=== PATIENT | female | born 1955 | race Caucasian/White ===

== ENCOUNTER 2023-07-03 15:42 | Outpatient (RCR) | payer OTHER, SELFPAY | END 2023-07-03 23:59 | disposition home or self-care (01) | LOC: RPT 15:42 | PROVIDERS: ATTENDING PHYSICIAN Urology; FAMILY PHYSICIAN Family Medicine | DX: N39.0 Urinary tract infection, site not specified (principal); N30.10 Interstitial cystitis (chronic) without hematuria; M62.89 Other specified disorders of muscle; Z73.6 Limitation of activities due to disability | CPT/HCPCS: 97163; 97530 ==

== ENCOUNTER 2023-08-22 16:00 | Outpatient (RCR) | payer OTHER, SELFPAY | END 2023-08-22 23:59 | disposition home or self-care (01) | LOC: RPT 16:00 | PROVIDERS: ATTENDING PHYSICIAN Urology; FAMILY PHYSICIAN Family Medicine | DX: N39.0 Urinary tract infection, site not specified (principal); N30.10 Interstitial cystitis (chronic) without hematuria; M62.89 Other specified disorders of muscle; Z73.6 Limitation of activities due to disability | CPT/HCPCS: 97140; 97530 ==

== ENCOUNTER → 2023-08-30 08:55 | Outpatient (REF) | payer OTHER, SELFPAY ==
[2023-08-30 12:13] LABS: % Basophils 1.7 % (0-2); % Eosinophils 2.9 % (0-6); % Immature Granulocytes 0.2 % (0-0.5); % Lymphocytes 31.4 % (20.5-51.1); % Monocytes 10.7 % (1.7-9.3); % Neutrophils 53.1 % (42.2-75.2); Absolute Basophils 0.1 10^3/uL (0-0.2); Absolute Eosinophils 0.2 10^3/uL (0-0.7); Absolute Lymphocytes 1.9 10^3/uL (1.2-3.4); Absolute Monocytes 0.6 10^3/uL (0.1-0.6); Absolute Neutrophils 3.2 10^3/uL (1.4-6.5); Hematocrit 40.7 % (37.0-47.0); Hemoglobin 13.7 g/dL (12.0-16.0); Mean Corp Hgb Conc. 33.7 g/dL (33.0-37.0); Mean Corpuscular Hgb 31.7 pg (27.0-31.0); Mean Corpuscular Volume 94.2 fL (81.0-99.0); Mean Platelet Volume 12.1 fL (7.4-10.4); Nucleated Red Blood Cells % 0 %; Platelet Count 169 10^3/uL (130-400); Red Blood Cell Count 4.32 10^6/uL (4.20-5.40); Red Cell Dist. Width 12.2 % (11.5-14.5)
[2023-08-30 12:29] LABS: ALT (SGPT) 17 U/L (0-35); AST (SGOT) 26 U/L (14-36); Albumin 4.5 g/dl (3.5-5.0); Alkaline Phosphatase 69 U/L (38-126); Blood Urea Nitrogen 20 mg/dl (7-17); Calcium 9.5 mg/dl (8.4-10.2); Carbon Dioxide 30 mmol/L (22-30); Chloride 103 mmol/L (98-107); Glucose 98 mg/dl (70-99); HDL Cholesterol 71 mg/dl; LDL Cholesterol, Calculated 148 mg/dl; Sodium 138 mmol/L (135-145); Total Bilirubin 0.8 mg/dl (0.2-1.3); Total Cholesterol 237 mg/dl (50-199); Total Protein 7.5 g/dl (6.3-8.2); Triglyceride 94 mg/dl (10-149); Very Low Density Lipoprotein 18 mg/dl (0-30); eGFR > 60.00
[2023-08-31 11:15] LABS: Glycohemoglobin (HgbA1c) 5.6 % (4.0-5.6)
== END ==
LOC: HWLAB 08:55
PROVIDERS: ATTENDING PHYSICIAN Family Medicine
DX: R53.83 Other fatigue (principal); R23.2 Flushing; E78.2 Mixed hyperlipidemia
CPT/HCPCS: 36415; 80053; 80061; 83036; 84443; 85025

== ENCOUNTER 2023-09-13 13:08 | Outpatient (RCR) | payer OTHER, SELFPAY | END 2023-09-13 23:59 | disposition home or self-care (01) | LOC: RPT 13:08 | PROVIDERS: ATTENDING PHYSICIAN Urology; FAMILY PHYSICIAN Family Medicine | DX: N39.0 Urinary tract infection, site not specified (principal); N30.10 Interstitial cystitis (chronic) without hematuria; M62.89 Other specified disorders of muscle; Z73.6 Limitation of activities due to disability | CPT/HCPCS: 97140; 97530 ==

== ENCOUNTER → 2023-10-08 15:29 | Outpatient (REF) | payer OTHER, SELFPAY | LOC: HWWDC 15:29 | PROVIDERS: ATTENDING PHYSICIAN Physician Assistant Medical | DX: Z12.31 Encounter for screening mammogram for malignant neoplasm of breast (principal) | CPT/HCPCS: 77063; 77067 ==

== ENCOUNTER → 2024-03-04 12:56 | Outpatient (REF) | payer OTHER, SELFPAY | LOC: HWRAD 12:56 | PROVIDERS: ATTENDING PHYSICIAN Physician Assistant Medical | DX: M17.11 Unilateral primary osteoarthritis, right knee (principal) | CPT/HCPCS: 73564 ==

== ENCOUNTER → 2024-10-13 15:12 | Outpatient (REF) | payer OTHER, SELFPAY | LOC: HWRAD 15:12 | PROVIDERS: ATTENDING PHYSICIAN Urology; FAMILY PHYSICIAN Family Medicine | DX: N39.0 Urinary tract infection, site not specified (principal) | CPT/HCPCS: 76775 ==

== ENCOUNTER → 2024-10-14 13:48 | Outpatient (REF) | payer OTHER, SELFPAY | LOC: HWWDC 13:48 | PROVIDERS: ATTENDING PHYSICIAN Advanced Practice Midwife; FAMILY PHYSICIAN Physician Assistant Medical | DX: Z12.31 Encounter for screening mammogram for malignant neoplasm of breast (principal) | CPT/HCPCS: 77063; 77067 ==

== ENCOUNTER 2024-10-23 22:42 | Inpatient (IN) | payer OTHER, SELFPAY ==
[2024-10-23 19:17] VITALS: BP 158/98
[2024-10-23] MEDS: ZOFRAN ODT (ORALLY DISINTEGRATING) 4 MG PO (19:24)
[2024-10-23] MEDS: TORADOL 30 MG IM (19:27)
[2024-10-23 20:21] LABS: Urine Albumin 3+ (Neg - Trace); Urine Bilirubin Negative (Negative); Urine Character Clear (Clear); Urine Color Yellow; Urine Glucose Negative (Negative); Urine Ketone Negative (Negative); Urine Leukocyte 3+ (Negative); Urine Nitrite Negative (Negative); Urine Occult Blood 4+ (Negative); Urine Urobilinogen 1+ (Neg - 1+)
[2024-10-23 20:22] LABS: % Basophils 0.8 % (0-2); % Eosinophils 0.8 % (0-6); % Immature Granulocytes 0.3 % (0-0.5); % Lymphocytes 18.8 % (20.5-51.1); % Monocytes 7.8 % (1.7-9.3); % Neutrophils 71.5 % (42.2-75.2); Absolute Basophils 0.1 10^3/uL (0-0.2); Absolute Eosinophils 0.1 10^3/uL (0-0.7); Absolute Lymphocytes 1.8 10^3/uL (1.2-3.4); Absolute Monocytes 0.8 10^3/uL (0.1-0.6); Absolute Neutrophils 6.9 10^3/uL (1.4-6.5); Hematocrit 38.4 % (37.0-47.0); Hemoglobin 12.8 g/dL (12.0-16.0); Mean Corp Hgb Conc. 33.3 g/dL (33.0-37.0); Mean Corpuscular Hgb 30.8 pg (27.0-31.0); Mean Corpuscular Volume 92.5 fL (81.0-99.0); Mean Platelet Volume 11.5 fL (7.4-10.4); Nucleated Red Blood Cells % 0 %; Platelet Count 183 10^3/uL (130-400); Red Blood Cell Count 4.15 10^6/uL (4.20-5.40); Red Cell Dist. Width 12.2 % (11.5-14.5); White Blood Cell Count 9.7 10^3/uL (4.8-10.8)
[2024-10-23 20:31] LABS: Urine Bacteria Few (Negative); Urine White Cell >100 /HPF (0-5)
[2024-10-23 20:40] LABS: ALT (SGPT) 15 U/L (0-35); AST (SGOT) 22 U/L (14-36); Albumin 4.3 g/dl (3.5-5.0); Alkaline Phosphatase 63 U/L (38-126); Blood Urea Nitrogen 17 mg/dl (7-17); Carbon Dioxide 26 mmol/L (22-30); Chloride 102 mmol/L (98-107); Glucose 144 mg/dl (70-99); Potassium 4.1 mmol/L (3.5-5.1); Sodium 137 mmol/L (135-145); Total Bilirubin 0.4 mg/dl (0.2-1.3); eGFR > 60.00
[2024-10-23 21:04] VITALS: BP 150/107
[2024-10-23 21:05] VITALS: BMI 23.0
[2024-10-23 21:22] VITALS: BP 156/83
--- NOTE | 2024-10-23 21:27 | ED.GENMED ---
History of Present Illness
General
Chief Complaint: Flank Pain
Source: patient
Exam Limitations: none
Time Seen by Provider: 10/23/24 21:05
History of Present Illness
History of Present Illness:
69yoF with history of depression and kidney stones presenting for evaluation of abdominal pain. Patient has been having a dull pain to her right lower back for the past several months. Her pain acutely worsened around 4:30 PM today. She reports a
sharp pain in her right lower abdomen which radiates to the right flank. She also reports nausea and had an episode of vomiting in the waiting room. She denies any dysuria or fevers. Patient had an outpatient ultrasound a few weeks ago which
showed multiple intrarenal stones. She was also treated 3 weeks ago for UTI with cephalexin x 5 days.
Past History
Past History
ED Past Medical History: None
ED Past Surgical History: None
Social History
Tobacco: Non-smoker
Personal:
Living: with family
Phy Exam
Physical Exam
Physical Exam:
Appears uncomfortable, non-toxic
General Physical Exam
General Presentation: mild distress
General Skin: warm and dry
General Habitus: normal
General Mental: alert
ENT Exam
ENT Exam: normocephalic
Eye Exam
Eye Exam: conjunctiva normal
Pulmonary Exam
Pulmonary Exam: no respiratory distress
Gastrointestinal Exam
Gastrointestinal Exam: non tender, soft, non distended and no cva tenderness
Neurological Exam
Neurological Exam: alert
[place] Coma Scale
Eye Opening: Spontaneous
Verbal Response: Oriented
Motor Response: Obeys Commands
GCS Total Score: 15
Skin Exam
Skin Exam: normal color and warm/dry
Psychiatric Exam
Psychiatric Exam: normal mood/affect
Course
Orders/Labs/Results
Orders:
Orders
10/23/24 Dinner
Regular
10/23/24 19:20
CT Abd/pel Without Iv Or Oral Urgent
Comment:
Reason For Exam: FLANK/ABDOMINAL PAIN
10/23/24 19:23
Ketorolac [Toradol] 30 mg .ROUTE .STK-MED ONE
Ondansetron Orally Disint [Zofran Odt (Orally Disintegrating)] 4 mg .ROUTE .STK-MED ONE
10/23/24 19:24
Ondansetron Orally Disint [Zofran Odt (Orally Disintegrating)] 4 mg PO NOW STA
10/23/24 19:25
Ketorolac [Toradol] 30 mg IM NOW STA
10/23/24 20:06
Complete Blood Count/With Diff Urgent
Comprehensive Metabolic Panel Urgent
10/23/24 20:09
Urinalysis Reflex To Culture Urgent
Date Specimen was Collected: 10/23/24
Time Specimen was Collected: 20:01
Urine Microscopic Reflex Cult Urgent
Urine Culture Urgent
KENNY Source: U
Specimen Description:
Date Specimen was Collected: 10/23/24
Time Specimen was Collected: 20:01
10/23/24 21:26
0.9% Sodium Chloride 1000 ml [Nss] 1,000 ml IV BOLUS
10/23/24 21:43
CefTRIAXone [Rocephin] 2,000 mg IV NOW STA
10/23/24 22:19
Admit/Transfer Patient As Directed
Co-Sign Provider:
Level of Care: Inpatient admission
Assign to:: Medical/Surgical
Physician / Group: hospitalist
Diagnosis: Right nephrolithiasis
Reason for Hospitalization: right sided obstructing kidney stone
Expected length of stay greater than two midnights?: Yes
ELOS- Estimated Length of Stay in days: 2
I certify the patient meets the requirements for IP care: Yes
10/23/24 22:22
Code Status As Directed
Resuscitation Status: Full Code
PRN Pain Medication Management As Directed
May give lesser potent ordered pain med per pt: Yes
preference::
Protocol:: Medication orders for pain may be administered in a
manner that supports deferring to patient preference
when the pt is:
- Requesting an ordered lesser potent pain medication.
Least to most potent pain medications are defined
as: acetaminophen < NSAID < tramadol < opioids
(morphine, oxycodone, hydromorphone).
- Requesting a lesser dose of the same medication IF
ORDERED.
- Requesting a less intrusive route of administration
if both routes are prescribed by the provider (PO <
IV).
10/23/24 23:00
Flush (0.9% Sodium Chloride) [Flush (Nss)] See Dose Instructions IV PER PROTOCOL
10/23/24 23:43
0.9% Sodium Chloride 1000 ml [Nss] 1,000 ml IV 75 mls/hr
Acetaminophen [Tylenol] 650 mg PO Q4HPRN PRN
Bisacodyl [Dulcolax] 10 mg RECTAL [id number] PRN
Docusate W/Senna [Senokot-S] 1 tablet PO BIDPRN PRN
HYDROmorphone [Dilaudid] 0.5 mg IV Q4HPRN PRN
Ketorolac [Toradol] 15 mg IV Q6HPRN PRN
Ondansetron Injectable [Zofran] 4 mg IV Q6HPRN PRN
Polyethylene Glycol Powder [Miralax] 17 grams PO DAILYPRN PRN
10/23/24 23:43
UROLOGY CONSULT Routine
Consulting Provider: Jesus Jackson
Was physician already notified: Yes
Activity As Directed
Activity Level: With Assistance
Pneumatic Compression Sleeves As Directed
Type: Knee high
Vital Signs As Directed
Frequency: Per unit guidelines
Pulse Ox/spot Check [RESP] Routine
Quantity: 1
DX Deep Vein Thrombosis Video Routine
10/24/24 Breakfast
NPO
Allow oral meds: Yes
Allow clear liquids: Sips of Clears
Basic Metabolic Panel IN AM
Complete Blood Count/No Diff IN AM
10/24/24 08:00
Citalopram [Celexa] 10 mg PO DAILY
10/24/24 21:00
CefTRIAXone [Rocephin] 1,000 mg IV Q24H
Abnormal Lab Results
10/23/24 10/23/24
20:06 20:09
RBC 4.15 L 10^6/uL
(4.20-5.40)
MPV 11.5 H fL
(7.4-10.4)
Absolute Neuts (auto) 6.9 H 10^3/uL
(1.4-6.5)
Absolute Monos (auto) 0.8 H 10^3/uL
(0.1-0.6)
Lymphocytes % 18.8 L %
(20.5-51.1)
Glucose 144 H mg/dl
(70-99)
Ur Occult Blood Reflex 4+ A
(Negative)
Leukocyte Esterase Rfl 3+ A
(Negative)
Urine RBC 3-6 A /HPF
(0-2)
Urine WBC (Reflex) >100 A /HPF
(0-5)
Urine Bacteria (Reflex) Few A
(Negative)
Urine Albumin (Reflex) 3+ A
(Neg - Trace)
10/23/24 20:06
10/23/24 20:06
Vital Signs
Initial and Last Documented VS:
Initial Vital Signs
Temp Pulse Resp BP Pulse Ox
98.8 F 84 15 158/98 98
10/23/24 19:17 10/23/24 19:17 10/23/24 19:17 10/23/24 19:17 10/23/24 19:17
Last Documented Vital Signs
Temp Pulse Resp BP Pulse Ox
98.8 F 84 15 144/73 97
10/23/24 19:17 10/23/24 19:17 10/23/24 19:17 10/23/24 21:30 10/23/24 22:03
MDM/Problems Addressed
Differential Diagnosis Includes:
69yoF here with RLQ and R flank pain that started at 4:30pm. Hx of kidney stones. She appears uncomfortable but is non-toxic. No reproducible tenderness on exam. Differential diagnosis includes but is not limited to: kidney stone, UTI,
pyelonephritis, musculoskeletal, appendicitis
Workup obtained in triage. CT shows 1.3cm stone in the distal R renal pelvis with associated moderate hydro. UA with >100 WBC. No leukocytosis or fever present. Creatinine 0.8. Case discussed with urology. No need for emergent intervention as there
is no evidence of sepsis. Plan to admit for hydration, antibiotics, with plan for OR tomorrow. IV Rocephin ordered and patient admitted for further management.
*Critical Care Note
Total Time (30-74mins, 75-104mins- exclusive of procedures): Not Applicable
ED Attending Note
-
Portions of this chart may have been created with voice recognition software.� Occasional wrong word or��sound alike� substitutions may have occurred due to the inherent limitations of voice recognition software.
Discharge Plan
Departure
Patient Disposition: Admit
Date of Disposition: 10/23/24
Time of Disposition: 21:44
Presentation/result/management discussed w/ accepting MD/DO: Hospitalist
Discharge Problem:
Right renal stone, Urinary tract infection
Interventions
Interventions:
*Risk Screen - Suicide Last Done: 10/23/24 19:17
*General Assessment Last Done: 10/23/24 19:17
*Neglect/Abuse Screening Last Done: 10/23/24 19:17
*ED- Fall Risk Assessment Last Done: 10/23/24 21:14
*ED COVID-19 Vaccine History Last Done: 10/23/24 21:14
*Nursing Disposition Last Done: 10/23/24 23:38
KN-Jfdyyq-Mntufntuof Assessment Last Done: 10/23/24 21:14
ED-Female Genitourinary Assessment Last Done: 10/23/24 21:19
Discharge Date and Time
Discharge Date/Time: 10/23/24 23:39
[2024-10-23 21:30] VITALS: BP 144/73
[2024-10-23] MEDS: NSS 1000 IV (21:31)
[2024-10-23] MEDS: ROCEPHIN 2000 MG IV (21:54)
--- NOTE | 2024-10-23 22:05 | HPS.HSE ---
Family Physician
-
Family Physician: Alcira Longo
Chief Complaint
-
Left-sided flank pain
History of Present Illness
This is a 69-year-old with past medical history significant for depression and a prior history of nephrolithiasis presenting to the emergency department with acute episode of right-sided flank pain.
Patient report being in usual state of health except for intermittent episode of low back pain over the last few months. However today she suddenly developed crampy as well as stabbing sharp pain right-sided flank pain that radiates to the groin.
She denied any dysuria or hematuria. She reported that on arrival in the emergency department she did feel like she was having chills and she was shaking. She had no fever in the ED. She has not been having any fevers or diaphoresis at home. She
denies any nausea or vomiting.
In the emergency department she was afebrile with a temp of 38.8, blood pressure was 150/100 with a pulse rate of 84. She is 76% on room air. CBC is unremarkable. Electrolyte BUN/creatinine were normal. UA is positive for blood leukocyte
esterase and WBCs. Few bacteria noted. CT a/p with 1.3 cm calculus in the distal right renal pelvis with associated moderate right hydronephrosis. Slightly prominent appendix without surrounding inflammatory change. Acute appendicitis is felt to
be unlikely.
Medical History
Past Medical History
Past Medical History: Reports Psychiatric (Anxiety) and Other (Nephrolithiasis)
Past Surgical History: Reports Tonsilectomy
Social History
Tobacco: Non-smoker
Alcohol: Occasional
Drug: None
Personal:
Living: With Family
Employment: Retired
Family History
Family History: Not pertinent
Allergies / Home Medications
Allergies reflects when Allergies were last updated in [facility].
Home Medications with original date entered in [facility]
Allergy/Medication List:
Allergies
Allergy/AdvReac Type Severity Reaction Status Date / Time
No Known Allergies Allergy Verified 06/18/20 04:29
Home Medications
citalopram 10 mg tablet 10 mg PO DAILY 06/18/20
Review of Systems
-
History Source: Patient
Constitutional: Reports No Symptoms
EENT: Reports No Symptoms
Cardiac: Reports No Symptoms
Abdomen/GI: Reports No Symptoms
: Reports Flank Pain
Musculoskeletal: Reports No Symptoms
Skin: Reports No Symptoms
Neurological: Reports No Symptoms
Endocrine: Reports No Symptoms
Hematologic/Lymphatic: Reports No Symptoms
Psych: Reports No Symptoms
Physical Exam
Vital Signs
Vital Signs
Temp Pulse Resp BP Pulse Ox
98.8 F 84 15 144/73 98
10/23/24 19:17 10/23/24 19:17 10/23/24 19:17 10/23/24 21:30 10/23/24 22:00
Physical Exam
General: Well Developed, Well Nourished, No Apparent Distress and Comfortable
HEENT: NormoCephalic, Anicteric, Moist mucous membranes and Atraumatic
Respiratory: Clear
Cardiac: S1/S2 and Regular Rhythm
GI: Soft, Non Tender, Non Distended and Normal Bowel Sounds
Rectal: Deferred by Provider
Genito-urinary: Costovertebral angle tend
Musculoskeletal: No Clubbing, No Cyanosis and No Edema
Skin: Warm
Neuro: AO x 3 and Nonfocal/grossly intact
Hematologic/Lymphatic: No Lymphadenopathy
Psych: Calm
Laboratory Results
-
10/23/24 20:06
10/23/24 20:06
Laboratory Results
Total Bilirubin 0.4 mg/dl (0.2-1.3) 10/23/24 20:06
AST 22 U/L (14-36) 10/23/24 20:06
ALT 15 U/L (0-35) 10/23/24 20:06
Alkaline Phosphatase 63 U/L (38-126) 10/23/24 20:06
Data Reviewed
-
CT Scan: Report Reviewed by me
Lab Data: Labs Reviewed by me
Old Records: Reviewed
Impression/Plan
-
IMPRESSION:
69 y.o female with h/o nephrolithiasis presenting to ED with acute right sided flank pain and chills. Found to have u/a positive for blood, wbc, LE and a CT can witha 1.3 cm stone in the right renal pelvis with hydronephrosis. Renal function is
stable.
PLAN:
1. Obstructive nephrolithiasis
- admit to med/surg
- npo after midnight
- IV fluids, unlikley to pass this large stone so hold of on tamsulosin for now
- urology aware, planning for procedure in am
- urine cultures
- IV ceftriaxone for now
DVT PPX - SCDs pending procedure
Code status - full code
[2024-10-23 23:40] VITALS: BP 131/77; BMI 22.5
--- NOTE | 2024-10-23 23:53 | TRANSFER ---
Pt arrived from ED @ 2340 w dx of right nephrolithiasis. Pt denied pain. VS WNL. Bed in lowest position, call gaxiola within reach. IVF as ordered.
[2024-10-24] VITALS (12 sets, daily range): BP systolic 102–144; BP diastolic 57–83
[2024-10-24] MEDS: NSS 1000 IV ×2 (01:21→18:25)
--- NOTE | 2024-10-24 07:25 | CONS.URO ---
Consultation
-
Date/Time Consultation Performed: 10/24/24 0655
Performing Provider: Manuel
Reason for Consultation: Right Renal Pelvic Stone
Medical History
History of Present Illness
Patient was seen on 10/08/[address] Chrissy Berry for UTI sx.
Prescribed 10 days of po cephalexin.
subsequent results of urine c&s:
ADALGISA SHELTON�,69 Y�,F�[id number]�MRN :�[id number]
[facility] [place]
[address] [place] [id number]
�[id number] RESULT
ID:�[id number] Date:��10/08/2024ollection Date:��10/08/2024��00:00:00Result Recd:��10/11/2024:35:07Report:��10/11/2024:10:16Spec Recd: �10/09/2024:38:00Requesting Physician:�Montse Berry
Physician:�Nati Berry, URINE, ROUTINE - 395
NAMEVALUELABFCULTURE, URINE, ROUTINE����[id number]
CULTURE, URINE, ROUTINE
Micro Number: [id number] Test Status: Final Specimen Source: Urine Specimen Quality: Adequate Result: 50,000-100,000 CFU/mL of Klebsiella pneumoniae
Comment: A portion of the results were performed at [facility].
K.pneumoniae INT KENNY AMIKACIN S 2 AMOX/CLAVULANATE S 4 AMP/SULBACTAM I 16 CEFAZOLIN NR
<=4 2 CEFEPIME S <=0.12 CEFTAZIDIME S <=1 CEFTRIAXONE S <=0.25 CIPROFLOXACIN I 0.5 GENTAMICIN S <=1 IMIPENEM S 0.5 LEVOFLOXACIN
S 0.5 MEROPENEM S <=0.25 NITROFURANTOIN I 64 PIP/TAZOBACTAM S 8 TRIMETHOPRIM/SULFA S <=20
Presented to [facility] ED last night with right flank pain.
Past Medical History
Past Medical History: Psychiatric (Depression/Anxiety) and Other (Urolithiasis, UTI)
Past Surgical History: Tonsilectomy
Family History
Family History: Reviewed & Not Pertinent
Allergies/Home Medications
Allergies
Allergy/AdvReac Type Severity Reaction Status Date / Time
No Known Allergies Allergy Verified 06/18/20 04:29
Home Medications
�Medication �Instructions �Recorded �Confirmed �Type
citalopram 10 mg tablet 10 mg PO DAILY 06/18/20 06/18/20 History
diclofenac sodium 75 mg 75 mg PO BID #14 tabs 06/18/20 Rx
tablet,delayed release
oxycodone-acetaminophen 5 mg-325 1 tab PO Q4HPRN PRN pain #7 tabs 06/18/20 Rx
mg tablet
tamsulosin 0.4 mg capsule 0.4 mg PO DAILY #7 caps 06/18/20 Rx
Child Ibuprofen 10/23/24 History
Physical Exam
Vital Signs
Vital Signs
Temp Pulse Resp BP Pulse Ox
97.8 F 88 16 131/77 95
10/23/24 23:40 10/23/24 23:40 10/23/24 23:40 10/23/24 23:40 10/23/24 23:40
Physical Exam
adult female
calm in hospital bed
General: No Apparent Distress
GI: Soft
Genito-urinary: No Costovertebral Tend
Skin: Warm
Neuro: Awake and Alert
Psych: Calm and Intact Judgement
Assessment / Plan
-
Right Renal Pelvic Stone: 13 mm, intermittently obstructing
Klebsiella UTI
non-obstructing left renal stones
though patient does not currently manifest evidence of systemic infection, combination of urease-splitting organism and intermittency obstructing stone represent a potential dangerous situation
Plan:
Right Ureteroscopy, Laser Lithotripsy and Stenting
surgical consent signed
Data Reviewed
-
CT Scan: Image personally visualized and interpreted
Lab Data: Labs Reviewed
Old Records: Reviewed
[2024-10-24] MEDS: CELEXA 10 MG PO (07:44)
[2024-10-24 07:52] LABS: Hematocrit 35.3 % (37.0-47.0); Hemoglobin 11.7 g/dL (12.0-16.0); Mean Corp Hgb Conc. 33.1 g/dL (33.0-37.0); Mean Corpuscular Hgb 30.9 pg (27.0-31.0); Mean Corpuscular Volume 93.1 fL (81.0-99.0); Mean Platelet Volume 12.4 fL (7.4-10.4); Platelet Count 166 10^3/uL (130-400); Red Blood Cell Count 3.79 10^6/uL (4.20-5.40); Red Cell Dist. Width 12.3 % (11.5-14.5); White Blood Cell Count 9.2 10^3/uL (4.8-10.8)
[2024-10-24 08:00] LABS: Blood Urea Nitrogen 12 mg/dl (7-17); Calcium 9.2 mg/dl (8.4-10.2); Carbon Dioxide 27 mmol/L (22-30); Chloride 108 mmol/L (98-107); Estimated Creatinine Clearance 71 ml/min; Glucose 106 mg/dl (70-99); Potassium 4.2 mmol/L (3.5-5.1); Sodium 143 mmol/L (135-145); eGFR > 60.00
--- NOTE | 2024-10-24 11:00 | W.PN.HOSP.TC ---
Today's Communication/Plan
-
Cysto today
Assessment / Plan
Assessment / Plan
69-year-old female with left flank pain
CT abdomen and pelvis-1.3 cm calculus in the distal right renal pelvis with associated moderate right hydronephrosis
CVS: S1-S2 normal
Chest: CTA B/L
Abdomen: Soft, NT / Bowel sounds present
Extremities: No edema
No pain this am
# Obstructive nephrolithiasis with right hydronephrosis
IV fluids
Given the size of the stones unlikely to pass
Urology planning for cystoscopy
Continue IV ceftriaxone
# Anxiety /mild Depression-continue Celexa
# DVT prophylaxis-SCDs
# Full code
Anticipated Discharge: Within 24 hours
Subjective/Interval History
-
Date of Service: October 24, 2024
Objective Data
-
Labs:
Laboratory Results
10/24/24
06:40
WBC 9.2
Hgb 11.7 L
Hct 35.3 L
Plt Count 166
Sodium 143
Potassium 4.2
Chloride 108 H
Carbon Dioxide 27
BUN 12
Creatinine 0.7
Glucose 106 H
Calcium 9.2
Vital Signs:
Vital Signs
Temp Pulse Resp BP Pulse Ox
98.3 F 95 18 144/83 98
10/24/24 08:18 10/24/24 08:18 10/24/24 08:18 10/24/24 08:18 10/24/24 08:18
I&O
10/23/24 10/24/24 10/25/24
06:59 06:59 06:59
Intake Total 380 / 380
Output Total 650 / 650
Balance -270 / -270
--- NOTE | 2024-10-24 12:41 | W.IMMPOSTOP ---
Surgical Immed Post Op Note
-
Primary Surgeon: Manuel
Pre-op Diagnosis: Right Renal Pelvic stone
Post-op Diagnosis: same
Procedure Performed: right ureteroscopy, laser lithotripsy, stenting
Anesthesia Type: lma
Specimen / Cultures: none
Estimated Blood Loss: none
Complications: none
Operative Findings: 13 mm Right Renal Pelvic stone
4.7 Fr 24 cm JJ right ureteral stent placed
[2024-10-24] MEDS: SUBLIMAZE 25 MCG IV (13:19)
--- NOTE | 2024-10-24 13:39 | PTCARENOTE ---
Pt returned from PACU in bed. IVF infusing per order. Pt educated on regular diet and to ring for assistance getting OOB, verbalized understanding. Bed locked and in the lowest position, safety maintained. Oriented to room and call gaxiola.
--- NOTE | 2024-10-24 15:24 | CM ---
Addendum entered by Flaquita Manjarrez RN 10/24/24 15:29:
Patient inquired about an aide for her spouse. Provide list of area homemakers.
Original Note:
Reviewed the chart notes and spoke with the patient at the bedside. The patient resides with her spouse and son in a two story home with five steps to enter. The patient reports no DME/VN/SNF in the past. The patient confirmed her pharmacy is [facility]
Veronika Duran. CM continues to be available to patient/family and is monitoring medical plan for needs at discharge.
Plan: Discharge to home when medically stable.
[2024-10-24] MEDS: TORADOL 15 MG IV ×2 (15:35→23:14)
[2024-10-24] MEDS: STERILE WATER FOR INJECTION 10 ML IV (21:31)
[2024-10-24] MEDS: ROCEPHIN 1000 MG IV (21:32)
[2024-10-24] MEDS: DITROPAN 5 MG PO (23:13)
[2024-10-25 03:12] VITALS: BP 103/58
[2024-10-25 07:20] VITALS: BP 104/56
[2024-10-25] MEDS: NSS IV (08:25)
[2024-10-25] MEDS: CELEXA 10 MG PO (08:26)
--- NOTE | 2024-10-25 09:30 | W.PN.URO.CBU ---
Today's Communication / Plan
-
OK to d/c home from urologic standpoint
F/U with Dr. Rivera in 2 weeks for cysto + stent removal per patient preference
Recommend 7-10 day course of antibiotics per UCx S/S for complicated UTI (prior UCx 2022 w/ Ampicillin-resistant Klebsiella)
D/w patient.
Assessment / Plan
-
cUTI
Intermittently obstructing large right renal pelvic stone
10/24: s/p right URS/laser lithotripsy/stone extraction/stent placement
UCx => GN bacilli
Diagnosis
-
Date of Service: October 25, 2024
-
Patient Diagnosis:
cUTI
Intermittently obstructing large right renal pelvic stone
Post Op Day:
10/24: s/p right URS/laser lithotripsy/stone extraction/stent placement
Subjective
-
Notes expected pelvic and right flank colic from stent and infection.
Denies N/V.
Reasonably comfortable this AM.
Tolerating diet.
Objective
-
Vital Signs
Temp Pulse Resp BP Pulse Ox
97.9 F 67 16 104/56 98
10/25/24 07:20 10/25/24 07:20 10/25/24 07:20 10/25/24 07:20 10/25/24 07:20
Intake and Output
10/24/24 10/25/24 10/26/24
06:59 06:59 06:59
Intake Total 380 / 380 3040 / 3040
Output Total 650 / 650 150 / 150
Balance -270 / -270 2890 / 2890
Intake:
Oral fluids 140 / 140 1440 / 1440
IV fluids (Total) 240 / 240 1600 / 1600
Normosal 100 / 100
Output:
Urine, Voided 650 / 650 150 / 150
Other:
Number of approximated SMALL 1
amounts of urine
Number of approximated MODERATE 2 2
amounts of urine
Laboratory Results
10/24/24 06:40
10/24/24 06:40
Physical Exam
-
General - well developed, well nourished, no acute distress
Abdomen - soft, non-tender
Skin - warm & dry with no rash
Neuro - AOx3, no motor deficits
Extremities - no clubbing, no cyanosis, no edema
Care Review
Data Reviewed
Discussed with: Hospitalist
CT Scan: Report Pers Reviewed and Image Pers Reviewed
Total Time Spent with Patient (in minutes): 50
[2024-10-25] MEDS: MAALOX 30 ML PO (11:08)
[2024-10-25 11:30] VITALS: BP 137/69
--- NOTE | 2024-10-25 11:43 | W.PN.HOSP.TC ---
Today's Communication/Plan
-
Patient requested liquid antibiotics I sent 10-day supply of Keflex to her pharmacy. Asked her to call the pharmacy to verify that they have the doses
Discharge
Assessment / Plan
Assessment / Plan
69-year-old female with left flank pain
CT abdomen and pelvis-1.3 cm calculus in the distal right renal pelvis with associated moderate right hydronephrosis
CVS: S1-S2 normal
Chest: CTA B/L
Abdomen: Soft, NT / Bowel sounds present
Extremities: No edema
# Obstructive nephrolithiasis with right hydronephrosis
Status post right ureteroscopy with laser lithotripsy and ureteral stent insertion by Dr. Jackson on 10/24/2024
Urine cultures with gram-negative bacilli no identification yet
Discussed with the patient about antibiotics and we will follow the cultures and call her with results
She has a history of Klebsiella UTI in the past
I discussed about vaginal estrogen cream-patient stated that her urologist had already given her a prescription she has not started using it yet. We discussed about starting it.
# Anxiety /mild Depression-continue Celexa
# DVT prophylaxis-SCDs
# Full code
Discussed with nursing
Discussed with urology
Patient requested liquid antibiotics I sent 10-day supply of Keflex to her pharmacy. Asked her to call the pharmacy to verify that they have the doses
Anticipated Discharge: Today
Subjective/Interval History
-
Date of Service: October 25, 2024
Objective Data
-
Vital Signs:
Vital Signs
Temp Pulse Resp BP Pulse Ox
97.9 F 67 16 104/56 98
10/25/24 07:20 10/25/24 07:20 10/25/24 07:20 10/25/24 07:20 10/25/24 07:20
I&O
10/24/24 10/25/24 10/26/24
06:59 06:59 06:59
Intake Total 380 / 380 3040 / 3040
Output Total 650 / 650 150 / 150
Balance -270 / -270 2890 / 2890
--- NOTE | 2024-10-25 12:36 | W.DS.TRANS ---
Addendum entered and electronically signed by Tami Sebastian MD 10/25/24 14:56:
Dictation- [id number]
Original Note:
DC Summary - Lab Tech
-
Discharge Instructions:
Discharge Diagnosis/Procedures Right Renal Pelvic Stone s/p Ureteroscopy, Laser
Lithotripsy, Stenting
Left Renal Stones -- non-obstructing, medium-
sized
Klebsiella UTI
Diet As tolerated
Activity As tolerated
Driving Restrictions As prior to admission
Instructions:
Stand-Alone Forms:
Changes to Home Medications: Yes
Discharge Medications:
DC Medications w/original date entered in [employer]
citalopram 10 mg tablet 10 mg PO DAILY Mental Health/Anxiety 06/18/20
cephalexin 250 mg/5 mL oral suspension 500 mg (10 mL) PO QID Infection #400 mL 10/25/24
Home Medication Changes
new Keflex
Pending Results: Yes
Additional Pending Results:
urine cx
[2024-10-25] MEDS: TORADOL 15 MG IV (13:05)
[2024-10-25] MEDS: FLUSH (NSS) 2 FLUSH IV (13:06)
== END 2024-10-25 14:47 | disposition home or self-care (01) | DRG 661 ==
LOC: 2 SOUTH 22:42
PROVIDERS: ADMITTING PHYSICIAN Internal Medicine; ATTENDING PHYSICIAN Hospitalist; CONSULT PHYSICIAN Specialist; EMERGENCY PHYSICIAN Emergency Medicine; FAMILY PHYSICIAN Physician Assistant Medical
PROC: 0T768DZ Dilation of Right Ureter with Intraluminal Device, Via Natural or Artificial Opening Endoscopic (ICD-10-PCS; 2024-10-24)
PROC: 0TC38ZZ Extirpation of Matter from Right Kidney Pelvis, Via Natural or Artificial Opening Endoscopic (ICD-10-PCS; 2024-10-24)
DX: N13.6 Pyonephrosis (principal); B96.1 Klebsiella pneumoniae [K. pneumoniae] as the cause of diseases classified elsewhere; F32.A Depression, unspecified; F41.9 Anxiety disorder, unspecified; Z87.442 Personal history of urinary calculi; Z87.440 Personal history of urinary (tract) infections
CPT/HCPCS: 74176; 74420; 76000; 80048; 80053; 81003; 81015; 85025; 85027; 87077; 87086; 87186; 96361; 96372; 96374; 99285; C1894; C2617

== ENCOUNTER → 2025-04-30 13:59 | Outpatient (REF) | payer OTHER, SELFPAY ==
[2025-04-30 14:50] LABS: Urine Character Clear (Clear)
[2025-04-30 15:20] LABS: Urine Red Blood Cell 0-2 /HPF (0-2); Urine White Cell 0-2 /HPF (0-5)
== END ==
LOC: REG 13:59
PROVIDERS: ATTENDING PHYSICIAN Urology; FAMILY PHYSICIAN Family Medicine
DX: N39.0 Urinary tract infection, site not specified (principal)
CPT/HCPCS: 81003; 81015; 87086